=== PATIENT | male | born 1995 | race Caucasian/White ===

== ENCOUNTER 2024-05-15 13:52 | Emergency (ER) | payer BC ==
[2024-05-15 14:03] VITALS: BP 132/81; PULSE 72; RESP 18; TEMP 98.4; BMI 25.0
[2024-05-15] MEDS ORDERED: ACETAMINOPHEN 500 MG TABLET (FP) ONE (14:30)
[2024-05-15] MEDS: ACETAMINOPHEN 500 MG TABLET (FP) PO ONE (14:35)
== END 2024-05-15 15:15 | disposition home or self-care (01) ==
LOC: JERFT 13:52
DX: M77.31 Calcaneal spur, right foot (principal)
CPT/HCPCS: 73630-TC-RT-FY; 99283-25